=== PATIENT | male | born 1980 | race Hispanic/Latino ===

== ENCOUNTER 2020-10-19 22:13 | Emergency (ER) | payer OTHER ==
[2020-10-19] MEDS ORDERED: TETANUS/DIPHTHERIA TOXOID [ADULT] 0.5 ML VIAL IM ONE (22:33)
[2020-10-19] MEDS ORDERED: AMPICILLIN SODIUM/SULBACTAM NA 1.5GM VIAL ONE (22:36)
[2020-10-19] MEDS ORDERED: SODIUM CHLORIDE 0.9% 50 ML IV ONE (22:37)
[2020-10-19] MEDS ORDERED: AMOXICILLIN/POTASSIUM CLAV 875-125 TABLET PO ONE (22:37)
[2020-10-21 15:13] LABS: HEPATITIS A ANTIBODY IGM Negative (Negative); HEPATITIS B CORE IGM Negative (Negative); HEPATITIS Bs ANTIGEN SCREEN P Negative (Negative)
== END 2020-10-20 00:19 | disposition home or self-care (01) ==
LOC: EDH 22:13
DX: S50.811A Abrasion of right forearm, initial encounter (principal); Y04.1XXA Assault by human bite, initial encounter; Y93.89 Activity, other specified; Y92.89 Other specified places as the place of occurrence of the external cause; Y99.8 Other external cause status
CPT/HCPCS: 36415; 80074; 86701; 87390; 90471; 90714; 96365; 99284; J0295